=== PATIENT | female | born 1960 | race Hispanic/Latino ===

== ENCOUNTER 2017-10-06 22:10 | Observation (INO) | payer MEDICARE, MEDICAID ==
[~2017-10-06] VITALS: Ht 167.6 cm; Wt 90.0 kg
[~2017-10-06 22:10] MED LIST: KEFLEX500 M1 PO
[2017-10-06] MEDS ORDERED: GABAPENTIN100 MG PO (22:57)
[2017-10-06] MEDS ORDERED: NITROGLYCERIN0.4 MG SL (22:57)
[2017-10-06] MEDS ORDERED: TEMAZEPAM30 MG PO (22:58)
[2017-10-06] MEDS ORDERED: FUROSEMIDE40 MG PO (22:58)
[2017-10-06] MEDS ORDERED: SYNJARDY 12.5-11 TAB PO (22:58)
[2017-10-06] MEDS ORDERED: CYMBALTA60 MG PO (22:59)
[2017-10-06] MEDS ORDERED: TOPAMAX100 MG PO (22:59)
[2017-10-06] MEDS ORDERED: VITAMIN B-12500 MCG PO (23:00)
[2017-10-06] MEDS ORDERED: SPIRONOLACT50 M1 PO (23:00)
[2017-10-06] MEDS ORDERED: MOTRIN800 MG PO (23:01)
[2017-10-06] MEDS ORDERED: TIZANIDINE HCL2 MG PO (23:01)
[2017-10-06] MEDS ORDERED: BACLOFEN10 MG PO (23:02)
[2017-10-06] MEDS ORDERED: AMITRIPTYLIN50 MG PO (23:02)
[2017-10-06] MEDS ORDERED: LYRICA50 MG PO (23:02)
[2017-10-06] MEDS ORDERED: OXYCODONE15 MG PO (23:03)
[2017-10-06 23:41] LABS: IMMATURE GRANULOCYTES 0.3 % (0.0-1.0); NEUT# 3.86 thou/uL (2.00-7.15); RED CELL DISTRI WIDTH 22.9 % (11.5-15.5)
[2017-10-06 23:44] LABS: HEMOGLOBIN 6.8 g/dl (12.0-16.0)
[2017-10-06 23:45] LABS: HEMATOCRIT 26.2 % (37.0-47.0); MEAN CELL VOLUME 66.2 fL CALC (80.0-100.0); MEAN CORPUSCULAR HGB 17.2 pG CALC (26.0-32.0); RED BLOOD COUNT 3.96 mill/uL (4.20-5.60)
[2017-10-06 23:53] LABS: PROTHROMBIN TIME 11.3 SECONDS (9.0-12.5)
[2017-10-06 23:54] LABS: ANION GAP 19 (6-22 (CALC)); BUN 8 mg/dL (7-17); BUN/CREATININE RATIO 10 (12-20 (CALC)); CARBON DIOXIDE 21 mmol/l (22-30); CREATININE 0.9 mg/dL (0.5-1.0); GFR > 60 ML/MIN (>=60 (CALC)); GFR FOR AFR.AMER. > 60 ML/MIN (>=60 (CALC)); POTASSIUM 3.6 mmol/l (3.5-5.1); SODIUM 146 mmol/l (137-146)
[2017-10-06 23:55] LABS: CHLORIDE 110 mmol/l (95-108)
[2017-10-06 23:59] LABS: URINE BILIRUBIN - DIPSTICK NEGATIVE (NEGATIVE); URINE BLOOD DIPSTICK NEGATIVE (NEGATIVE); URINE CLARITY SL CLOUDY; URINE COLOR YELLOW; URINE GLUCOSE - DIPSTICK 100 mg/dL (NEGATIVE); URINE KETONE NEGATIVE (NEGATIVE); URINE LEUK ESTERASE NEGATIVE (NEGATIVE); URINE NITRITE - DIPSTICK NEGATIVE (Negative); URINE PROTEIN - DIPSTICK NEGATIVE (NEG-TRACE); URINE SPECIFIC GRAVITY <=1.005; URINE UROBILINOGEN - DIPSTICK 0.2 E.U./dL (0.2)
[2017-10-07] VITALS (17 sets, daily range): BP systolic 126–412; BP diastolic 76–89
[2017-10-07 11:27] LABS: HEMATOCRIT 30.1 % (37.0-47.0); HEMOGLOBIN 8.7 g/dl (12.0-16.0)
[2017-10-08 04:00] VITALS: BP 146/90
[2017-10-08 04:13] VITALS: BP 147/87
[2017-10-08 05:14] LABS: HEMATOCRIT 30.6 % (37.0-47.0); HEMOGLOBIN 8.6 g/dl (12.0-16.0); IMMATURE GRANULOCYTES 0.4 % (0.0-1.0); MEAN CORPUSCULAR HGB 19.8 pG CALC (26.0-32.0); MEAN CORPUSCULAR HGB CONC 28.1 g/L CALC (32.0-36.0); NEUT# 3.23 thou/uL (2.00-7.15); RED BLOOD COUNT 4.35 mill/uL (4.20-5.60); RED CELL DISTRI WIDTH 24.3 % (11.5-15.5)
[2017-10-08 05:21] LABS: ANION GAP 16 (6-22 (CALC)); BUN 8 mg/dL (7-17); BUN/CREATININE RATIO 10 (12-20 (CALC)); CALCULATED LDLCHOLESTEROL 47 mg/dL (62-129 (CALC)); CARBON DIOXIDE 22 mmol/l (22-30); CHLORIDE 112 mmol/l (95-108); CHOLESTEROL HDL RATIO 2.3 (<4.4 (CALC)); CREATININE 0.8 mg/dL (0.5-1.0); GFR > 60 ML/MIN (>=60 (CALC)); GFR FOR AFR.AMER. > 60 ML/MIN (>=60 (CALC)); HDL CHOLESTEROL 43 mg/dL (>=40); MAGNESIUM 1.9 mg/dL (1.6-2.3); POTASSIUM 3.9 mmol/l (3.5-5.1); SODIUM 146 mmol/l (137-146); TOTAL CHOLESTEROL 101 mg/dl (0-199); TOTAL TRIGLYCERIDES 59 mg/dl (30-149); VLDL CHOLESTROL 12 mg/dl (2-49 (CALC))
[2017-10-08 05:45] LABS: MEAN CELL VOLUME 70.3 fL CALC (80.0-100.0)
[2017-10-08 07:38] VITALS: BP 139/88
[2017-10-08] MEDS ORDERED: FERR SULFATE325 MG PO (11:18)
[2017-10-08] MEDS ORDERED: DOXYCYCL HYC100 MG PO (11:18)
[2017-10-08 11:45] VITALS: BP 125/83
== END 2017-10-08 12:55 | disposition home or self-care (01) ==
LOC: ED 22:10 → ED-I 23:45 → ED 10-07 00:08 → MS2 10-07 00:09
PROVIDERS: Family Medicine; Nurse Practitioner Family; ADMIT Internal Medicine; ATTEND Internal Medicine
PROC: 30233N1 Transfusion of Nonautologous Red Blood Cells into Peripheral Vein, Percutaneous Approach (ICD-10-PCS; principal; 2017-10-07)
PROC: 30233N1 Transfusion of Nonautologous Red Blood Cells into Peripheral Vein, Percutaneous Approach (ICD-10-PCS; 2017-10-07)
DX: D50.9 Iron deficiency anemia, unspecified (principal); I11.0 Hypertensive heart disease with heart failure; I50.9 Heart failure, unspecified; E11.40 Type 2 diabetes mellitus with diabetic neuropathy, unspecified; J45.909 Unspecified asthma, uncomplicated; L03.116 Cellulitis of left lower limb; L03.115 Cellulitis of right lower limb; M19.90 Unspecified osteoarthritis, unspecified site; F41.9 Anxiety disorder, unspecified; I25.10 Atherosclerotic heart disease of native coronary artery without angina pectoris; Z95.5 Presence of coronary angioplasty implant and graft; Z95.0 Presence of cardiac pacemaker; Z85.43 Personal history of malignant neoplasm of ovary; Z98.84 Bariatric surgery status
CPT/HCPCS: G0328; J1756; P9016

== ENCOUNTER 2018-04-05 09:01 | Day surgery (SDC) | payer MEDICARE, MEDICAID ==
[~2018-04-05 09:01] MED LIST changes: +AMITRIPTYLIN50 MG PO; +BACLOFEN10 MG PO; +CYMBALTA60 MG PO; +DOXYCYCL HYC100 MG PO; +FERR SULFATE325 MG PO; +FUROSEMIDE40 MG PO; +GABAPENTIN100 MG PO; +LYRICA50 MG PO; +MOTRIN800 MG PO; +NITROGLYCERIN0.4 MG SL; +OXYCODONE15 MG PO; +SPIRONOLACT50 M1 PO; +SYNJARDY 12.5-11 TAB PO; +TEMAZEPAM30 MG PO; +TIZANIDINE HCL2 MG PO; +TOPAMAX100 MG PO; +VITAMIN B-12500 MCG PO
[2018-04-05 11:31] VITALS: BP 100/60
== END 2018-04-05 11:45 | disposition home or self-care (01) ==
LOC: ENDO 09:01
PROVIDERS: ATTEND Surgery
PROC: 0DJ08ZZ Inspection of Upper Intestinal Tract, Via Natural or Artificial Opening Endoscopic (ICD-10-PCS; principal; 2018-04-05)
DX: R13.10 Dysphagia, unspecified (principal); K59.00 Constipation, unspecified; K43.9 Ventral hernia without obstruction or gangrene; Z98.84 Bariatric surgery status